=== PATIENT | female | born 1980 | race Two or more races ===

== ENCOUNTER 2017-10-30 14:48 | Emergency (ER) | payer SELFPAY ==
[~2017-10-30] VITALS: Ht 165.1 cm; Wt 88.5 kg
[2017-10-30 15:05] VITALS: BP 180/94
== END 2017-10-30 15:51 | disposition home or self-care (01) ==
LOC: ER 14:55
DX: H53.143 Visual discomfort, bilateral (principal)
CPT/HCPCS: A4606; Z7610